=== PATIENT | female | born 1985 | race Hispanic/Latino ===

== ENCOUNTER 2025-01-24 18:47 | Emergency (ER) | payer BC, MEDICAID ==
[2025-01-24 19:16] LABS: Glucose, Urine (Dipstick) Normal (Negative); Leukocyte Negative (Negative); Protein, Urine (Dipstick) Negative (Neg-Trace); Specific Gravity, Urine 1.020 (1.005-1.030)
[2025-01-24 19:19] LABS: Pregnancy Test - Urine (BHCG) POSITIVE (Negative); Pregu Control Background? CLEAR/WHITE (CLR/WHITE); Pregu Control Bar Appear? YES (CONTROL BAR)
[2025-01-24 19:35] LABS: Bacteria/HPF None Seen HPF (None Seen); CAUTI Indications for Culture Pregnancy; RBC/HPF 0-3 HPF (0-3); WBC/HPF 0-3 HPF (0-3)
[2025-01-24 19:36] LABS: Urine Culture Reflex Yes Yes
[2025-01-24 20:41] LABS: #Basophils 0.05 10x3/uL (0.0-0.2); #Eosinophils 0.49 10x3/uL (0.0-0.5); #Monocytes 0.66 10x3/uL (0.0-1.1); #Neutrophils 5.66 10x3/uL (1.5-8.4); %Basophils 0.5 % (0.0-2.0); %Eosinophils 5.3 % (0.0-6.0); %Lymphocytes 26.0 % (18.0-47.0); %Monocytes 7.1 % (0.0-10.0); %Neutrophils 60.7 % (40.0-75.0); Hematocrit 40.4 % (34.9-44.5); Hemoglobin 12.9 g/dL (12.0-15.5); Mean Corpuscular Hemoglobin 28.7 pg (27.0-33.0); Mean Corpuscular Volume 89.8 fL (81.6-98.3); Platelet Count 325 10x3/uL (150-450); Red Blood Cell (RBC) Count 4.50 10x6/uL (3.90-5.03); White Blood Cell (WBC) Count 9.33 10x3/uL (3.5-10.5)
[2025-01-24 20:55] LABS: ALT (SGPT) 21 U/L (Less than 34); AST (SGOT) 29 U/L (11-34); Albumin 4.1 g/dL (3.1-4.5); Alkaline Phosphatase 97 U/L (40-110); Anion Gap 10 mmol/L (10-20); BUN (Urea Nitrogen) 13 mg/dL (7.0-18.7); Bilirubin, Total 0.6 mg/dL (0.3-1.2); Calc. Creatinine Clearance 0 mL/min (70-130); Calcium 9.0 mg/dL (7.8-10.44); Carbon Dioxide 27 mmol/L (22-29); Chloride 103 mmol/L (98-107); Globulin 3.6 g/dL (2.4-3.5); Glucose 94 mg/dL (70-105); Potassium 4.1 mmol/L (3.5-5.1); Sodium 136 mmol/L (136-145)
== END 2025-01-24 21:51 | disposition home or self-care (01) ==
LOC: CSHERS 18:47
DX: O20.9 Hemorrhage in early pregnancy, unspecified (principal); N93.9 Abnormal uterine and vaginal bleeding, unspecified; Z3A.01 Less than 8 weeks gestation of pregnancy
CPT/HCPCS: 36415; 76856; 80053; 81001; 81025; 84702; 85025; 86900; 86901; 87086

== ENCOUNTER 2025-02-21 10:46 | Emergency (ER) | payer MEDICAID, OTHER ==
[2025-02-21 11:26] LABS: Glucose, Urine (Dipstick) Normal (Negative); Leukocyte Negative (Negative); Protein, Urine (Dipstick) Negative (Neg-Trace); Specific Gravity, Urine 1.015 (1.005-1.030)
[2025-02-21 11:32] LABS: Pregnancy Test - Urine (BHCG) POSITIVE (Negative); Pregu Control Background? CLEAR/WHITE (CLR/WHITE); Pregu Control Bar Appear? YES (CONTROL BAR)
[2025-02-21 11:45] LABS: #Basophils 0.05 10x3/uL (0.0-0.2); #Eosinophils 0.38 10x3/uL (0.0-0.5); #Monocytes 0.67 10x3/uL (0.0-1.1); #Neutrophils 5.20 10x3/uL (1.5-8.4); %Basophils 0.6 % (0.0-2.0); %Eosinophils 4.8 % (0.0-6.0); %Lymphocytes 20.0 % (18.0-47.0); %Monocytes 8.5 % (0.0-10.0); %Neutrophils 65.8 % (40.0-75.0); Hematocrit 37.8 % (34.9-44.5); Hemoglobin 12.4 g/dL (12.0-15.5); Mean Corpuscular Hemoglobin 29.7 pg (27.0-33.0); Mean Corpuscular Volume 90.4 fL (81.6-98.3); Platelet Count 280 10x3/uL (150-450); Red Blood Cell (RBC) Count 4.18 10x6/uL (3.90-5.03); White Blood Cell (WBC) Count 7.90 10x3/uL (3.5-10.5)
[2025-02-21 11:46] LABS: Bacteria/HPF Rare-Few HPF (None Seen); CAUTI Indications for Culture Pregnancy
[2025-02-21 11:47] LABS: Mucous/LPF 1+ LPF (<2+); Urine Culture Reflex Yes Yes
[2025-02-21 12:05] LABS: ALT (SGPT) 17 U/L (Less than 34); AST (SGOT) 43 U/L (11-34); Albumin 3.7 g/dL (3.1-4.5); Alkaline Phosphatase 84 U/L (40-110); Anion Gap 9 mmol/L (10-20); BUN (Urea Nitrogen) 12 mg/dL (7.0-18.7); Bilirubin, Total 0.5 mg/dL (0.3-1.2); Calc. Creatinine Clearance 0 mL/min (70-130); Calcium 8.5 mg/dL (7.8-10.44); Carbon Dioxide 23 mmol/L (22-29); Chloride 108 mmol/L (98-107); Globulin 3.5 g/dL (2.4-3.5); Glucose 105 mg/dL (70-105); Potassium 4.2 mmol/L (3.5-5.1); Sodium 136 mmol/L (136-145)
== END 2025-02-21 15:46 | disposition home or self-care (01) ==
LOC: CSHERS 10:46
DX: O03.9 Complete or unspecified spontaneous abortion without complication (principal); Z3A.11 11 weeks gestation of pregnancy; Z87.891 Personal history of nicotine dependence
CPT/HCPCS: 36415; 76856; 80053; 81001; 81025; 84702; 85025; 87086